=== PATIENT | male | born 1975 | race Caucasian/White ===

== ENCOUNTER 2019-07-04 01:07 | Emergency (ER) | payer SELFPAY ==
[~2019-07-04] VITALS: Ht 175.3 cm; Wt 70.5 kg
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
[2019-07-04] MEDS ORDERED: HYDROcodone/APAP 5 MG/325 MG (LORTAB) TAB PO ONE (01:45)
[2019-07-04 01:54] VITALS: BP 136/95
--- NOTE | 2019-07-04 07:00 | Diagnostic Imaging Report ---
INDICATION: Fall with hip pain FINDINGS: AP pelvis and two-view left hip performed. No fracture or dislocation identified. IMPRESSION: No acute appearing abnormality Dictated by: Dictated on workstation # [id number]
--- OUTSIDE RECORDS SUMMARY | 2019-07-29 05:12 | XMS REPORT | Continuity of Care Document ---
Author Organization Unknown Address Unknown Phone Unavailable Allergies Active Description Code Type Severity Reaction Onset Reported/Identified Relationship to Patient Clinical Status Yes Penicillins [id number] Drug Aller gy Unknown N/A 07/04/2019 Medications There is no data. Problems There is no data. Procedures There is no data. Results There is no data. Encounters ACCT No. Visit Date/Time Discharge Status Pt. Type Provider Facility Loc./Unit Complaint [id number] 07/04/2019 01:09:00 019 01:54:00 DIS Emergency GUERRERO KATTY GARCÍA [facility] ER FS LT LEG INJ
== END 2019-07-04 01:54 | disposition home or self-care (01) ==
LOC: EDUNIT# 01:07 → ER FS 01:09
DX: S70.02XA Contusion of left hip, initial encounter (principal); Z88.0 Allergy status to penicillin; W11.XXXA Fall on and from ladder, initial encounter
CPT/HCPCS: 73502

== ENCOUNTER 2021-06-18 19:58 | Emergency (ER) | payer SELFPAY ==
[~2021-06-18] VITALS: Ht 175.2 cm; Wt 72.5 kg
[2021-06-18] MEDS ORDERED: fentaNYL INJ 100 MCG/2 ML AMP ONE (20:02)
[2021-06-18] MEDS: fentaNYL INJ 100 MCG/2 ML AMP IVP PRN ×2 (20:03→20:56)
[2021-06-18] MEDS ORDERED: LACTATED RINGERS 1,000 ML IV STA (20:08)
[2021-06-18 20:14] LABS: HEMATOCRIT 45 % (40-54); MEAN CORPUSCULAR HEMOGLOBIN 32 pg (25-34); MEAN CORPUSCULAR HGB CONC 34 g/dL (32-36); MEAN CORPUSCULAR VOLUME 94 fL (80-99); PLATELET COUNT 442 10^3/uL (130-400); WHITE BLOOD COUNT 12.4 10^3/uL (4.3-11.0)
[2021-06-18 20:15] LABS: BASOPHILS % (AUTO) 1 % (0-10); EOSINOPHILS % (AUTO) 1 % (0-10); LYMPHOCYTES % (AUTO) 41 % (12-44); MONOCYTES % (AUTO) 10 % (0-12); NEUTROPHILS % (AUTO) 48 % (42-75)
[2021-06-18 20:16] LABS: BASOPHILS # (AUTO) 0.1 10^3/uL (0.0-0.1); EOSINOPHILS # (AUTO) 0.1 10^3/uL (0.0-0.3); LYMPHOCYTES # (AUTO) 5.1 X 10^3 (1.0-4.0); MONOCYTES # (AUTO) 1.2 X 10^3 (0.0-1.0); NEUTROPHILS # (AUTO) 5.9 X 10^3 (1.8-7.8)
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
[2021-06-18] MEDS ORDERED: KETAMINE HCL 100 MG/ML 5 ML VIAL IM ONE (20:30)
[2021-06-18 20:46] LABS: CALCIUM 9.5 MG/DL (8.5-10.1); CREATININE SERUM 1.14 MG/DL (0.60-1.30); POTASSIUM 3.7 MMOL/L (3.6-5.0)
[2021-06-18] MEDS ORDERED: ONDANSETRON 4 MG/2 ML (SDV) Z0FRAN ONE (20:49)
[2021-06-18] MEDS ORDERED: ONDANSETRON 4 MG/2 ML (SDV) Z0FRAN IVP ONE (21:00)
[2021-06-18 21:49] VITALS: BP 126/82
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
--- OUTSIDE RECORDS SUMMARY | 2021-06-25 08:50 | XMS REPORT | Encounter Summary ---
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 documented as of this encounter Plan of Treatment Not on filedocumented as of this encounter Visit Diagnoses Not on filedocumented in this encounter
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
== END 2021-06-18 21:49 | disposition short-term general hospital (02) ==
LOC: EDUNIT# 19:58 → ER FS 20:00
DX: T21.25XA Burn of second degree of buttock, initial encounter (principal); X11.0XXA Contact with hot water in bath or tub, initial encounter
CPT/HCPCS: 36415; 80048; 85025; 96374; 96375